=== PATIENT | female | born 1970 | race American Indian/Alaskan Native ===

== ENCOUNTER 2016-11-04 12:09 | Emergency (ER) | payer BC ==
[2016-11-04 14:20] VITALS: BP 160/100
[2016-11-04] MEDS ORDERED: TYLENOL #3 PO ONE (14:32)
--- NOTE | 2016-11-04 14:32 | Emergency Department Report ---
HPI - General Chief Complaint: Dental/Oral Time Seen by Provider: 11/04/16 13:41 - HPI HPI: Patient here complaining that she has toothache to her lower right tooth that has been broken off for 3 months and she states toothache started 2 days ago it' s been on and off. Her blood pressures been elevated because she said her pain is causing blood pressure to be elevated. She denies any headache, chest pain or shortness of breath.. Denies any cough difficulty breathing. Denies any sinus pain or pressure. She says she takes lisinopril and HCTZ and she has a primary care physician but pcp was cotoff by [employer] so she is acting to be recommended to a new primary care physician. She is also asked him to be recommended to a dentist to pull her tooth because she said it still across her $300 and she doesn't have any dental insurance. Patient reports pain is 10 out of 10 and achy worse with eating. Patient denies any sore throat. She says she's taken Motrin that does not help her pain. ` She denies any fever or chills. ED Past Medical Hx - Past Medical History Previous Medical History?: Yes Hx Hypertension: Yes - Surgical History Past Surgical History?: Yes Additional Surgical History: CSECTION - Family History Family history: hypertension - Social History Smoking Status: Never Smoker Substance Use Type: None - Medications Home Medications: Home Medications Medication Instructions Recorded Confirmed Last Taken Type Acetaminophen/Codeine [Tylenol 1 tab PO Q6H PRN #15 tab 11/04/16 Unknown Rx /Codeine # 3 tab] Clindamycin [Clindamycin CAP] 300 mg PO Q8H #30 cap 11/04/16 Unknown Rx ED Review of Systems ROS: Stated complaint: BROKEN TOOTH Other details as noted in HPI Comment: All other systems reviewed and negative Constitutional: no symptoms reported Eyes: denies: eye pain, eye discharge ENT: dental pain. denies: ear pain, throat pain, congestion Respiratory: no symptoms reported Cardiovascular: denies: chest pain, palpitations, edema, syncope Gastrointestinal: denies: abdominal pain, nausea, vomiting Musculoskeletal: denies: back pain, joint swelling, arthralgia, myalgia Skin: denies: rash Neurological: denies: headache, weakness, numbness, paresthesias, confusion, abnormal gait, vertigo Physical Exam - Physical Exam Vital Signs: Vital Signs 11/04/16 11/04/16 12:34 14:18 Temperature 97.9 F Pulse Rate 74 Respiratory 16 Rate Blood Pressure 172/110 Blood Pressure 160/100 [Left] O2 Sat by Pulse 100 Oximetry General: This is a 46-year-old female well-nourished well-developed in no acute distress. Physical Exam: Head: Normocephalic, atraumatic, no abrasion, no bruising and no contusion. Eyes: Biateral pupils equal and reactive to light, bilateral EOM intact.. Bilateral conjunctival and sclera without injection, normal accommodation. Ears: Bilateral EAC without any redness drainage or swelling,Bilateral TM pearly voss bilateral tragus is normal and nontender. No auricular abnormality. No Mastoid bones tenderness. Nose: Moist, normal mucosa. No maxillary or frontal sinus tenderness. Mouth: Moist, no pharyngeal erythema or exudate. No peritonsillar abscess noted. Uvula is midline and oral airways patent. Tongue is normal. Tooth #32 with positive partial fracture without pulp exposure. No dental tenderness, abscess or cellulitis noted. Gums are normal. Neck: Supple, No Cervical adenopathy, full range of motion and no C-spine tenderness. No swelling or tracheal deviation Cardiovascular: S1, S2. Regular rate and rhythm. No murmur. Capillary refill is less then 3 seconds. Blood pressure is elevated without any symptoms Lungs: Clear to auscultate bilaterally. No rhonchi, wheezes or rales. No chest wall tenderness MSK: Strength 5/5 in all extremities. No joint deformity or crepitus. Normal inspection. Full range of motion to all extremities Neurologically:the patient was awake, alert, and oriented to person, place and time. There were no obvious focal neurologic abnormalities. GCS of 15, normal speech and no facial droop and Extremities: No clubbing, cyanosis or edema. +2 pulses. No neurovascular compromise Skin: Clean, dry and intact. No rash or lesions. Psych: Normal mood and behavior. ED Course Vital Signs 11/04/16 11/04/16 12:34 14:18 Temperature 97.9 F Pulse Rate 74 Respiratory 16 Rate Blood Pressure 172/110 Blood Pressure 160/100 [Left] O2 Sat by Pulse 100 Oximetry - Reevaluation(s) Reevaluation #1: 11/04/16 16:18 Patient given Tramadol 50 mg by mouth and emergency room for toothache and she said her pain is down to a 3 out of 10. ED Medical Decision Making - Medical Decision Making ED Course:Patient here reports that she has toothache this is an ongoing for 3 months. She said it has been on and off and she's been taken [id number] pain medication with is not helping. She says she has health insurance but does not have dental insurance. She said she called the dentist and they said it costs $300 to extract tooth and it still expensive for her. Patient found to have partial tooth fracture to #32 without any abscess, cellulitis or gingival abnormalities. Her blood pressure is elevated and she was given Ultram 50 mg by mouth for toothache in ER which she said her pain is better. Blood pressure before discharge is 160/100 which is still elevated. I discussed the patient that she has high blood pressure and she says she is taking her lisinopril and HCTZ but when she is in pain her blood pressure goes up. I encouraged her to keep a log of her blood pressure and I'll refer her to primary care doctor at her request. Patient with partial dental fracture, elevated blood pressure with history of hypertension and toothache. Patient discharged home with prescription for Tylenol 3 and amoxicillin. Critical care attestation.: If time is entered above; I have spent that time in minutes in the direct care of this critically ill patient, excluding procedure time. ED Disposition Clinical Impression: Toothache, Elevated blood pressure reading with diagnosis of hypertension Fracture, tooth Qualifiers: Encounter type: initial encounter Fracture type: closed Qualified Code(s): S02.5XXA - Fracture of tooth (traumatic), initial encounter for closed fracture Disposition: DC-01 TO HOME OR SELFCARE Is pt being admited?: No Does the pt Need Aspirin: No Condition: Stable Instructions: Toothache (ED), Acute dental trauma (ED), Hypertension (ED), Heart Healthy Diet (ED) Additional Instructions: Follow-up with [facility] dental clinic and call tomorrow to schedule an appointment. You can follow-up with Dr. Lei who is the primary care physician. Please do not drive or operate heavy machinery while taking Tylenol No. 3 as this medication causes drowsiness. Please keep a log of your blood pressure and take to her primary care visit with you for evaluation and possible adjustment of blood pressure medication. Take antibiotic as prescribed Prescriptions: Acetaminophen/Codeine [Tylenol /Codeine # 3 tab] 1 tab PO Q6H PRN #15 tab PRN Reason: Toothache Clindamycin [Clindamycin CAP] 300 mg PO Q8H #30 cap Referrals: HAYDEE LEI JR, MD [Staff Physician] - 3-5 Days [facility] [Outside] - 2-3 Days Forms: Work/School Release Form(ED)
[2016-11-04] MEDS ORDERED: ULTRAM PO ONE (14:33)
== END 2016-11-04 16:32 | disposition home or self-care (01) ==
LOC: ED 12:09
DX: S02.5XXA Fracture of tooth (traumatic), initial encounter for closed fracture (principal); I10 Essential (primary) hypertension; X58.XXXA Exposure to other specified factors, initial encounter; Y93.89 Activity, other specified; Y92.89 Other specified places as the place of occurrence of the external cause; Y99.8 Other external cause status
CPT/HCPCS: 99282